=== PATIENT | female | born 1955 | race Caucasian/White ===

== ENCOUNTER 2017-11-17 12:28 | Emergency (ER) | payer OTHER ==
[~2017-11-17] VITALS: Ht 170.2 cm; Wt 86.0 kg
[2017-11-17 12:45] VITALS: BP 137/83
== END 2017-11-17 14:57 | disposition home or self-care (01) ==
LOC: ED 13:49
DX: G89.11 Acute pain due to trauma (principal); M25.561 Pain in right knee; X50.0XXA Overexertion from strenuous movement or load, initial encounter; Y93.54 Activity, bowling; Y92.39 Other specified sports and athletic area as the place of occurrence of the external cause; Y99.8 Other external cause status
CPT/HCPCS: 29505